=== PATIENT | male | born 1955 | race Caucasian/White ===

== ENCOUNTER 2017-10-10 08:01 | Day surgery (SDC) | payer BC ==
[2017-10-10 08:42] VITALS: TEMP 98.4; BMI 37.5
--- NOTE | 2017-10-10 09:21 | PROC ---
Endoscopy Procedure Endoscopy procedure completed. Please see scanned procedure report.
[2017-10-10 09:52] VITALS: PULSE 70
[2017-10-10 10:43] VITALS: BP 148/55
--- NOTE | 2017-10-11 14:07 | PATH ---
Surgical Pathology Report Patient Name: KYRA SANDOVAL [facility]. Rec. #: [id number] /Age/Gender: 1955 (Age: 61) / M Account: [id number] Location: [facility]-ENDOSCOPY Taken: 10/10/2017 Received: 10/10/2017 Reported: 10/11/2017 Physicians: Aren Hyde M.D. Specimen(s) Received A: BX TRANSVERSE COLON POLYP B: BX RECTAL POLYP #1 C: BX RECTAL POLYP #2 Clinical History History of colon polyp Postoperative diagnosis: Polyps Final Diagnosis A. TRANSVERSE COLON, POLYP, POLYPECTOMY: TUBULAR ADENOMA. B. RECTAL POLYP #1, POLYPECTOMY: HYPERPLASTIC POLYP. C. RECTAL POLYP #2, POLYPECTOMY: HYPERPLASTIC POLYP. Electronically Signed Lucy Coley M.D. Gross Description A. Received in formalin, labeled "biopsy transverse colon polyp" is a gallagher, irregular portion of soft tissue measuring 0.2 cm. in greatest dimension. The specimen is submitted in toto in one cassette. B. Received in formalin, labeled "biopsy rectal polyp #1" are 2 gallagher, irregular portions of soft tissue averaging 0.3 cm. in greatest dimension. The specimens are submitted in toto in one cassette. C. Received in formalin, labeled "biopsy rectal polyp #2" is a gallagher, irregular portion of soft tissue measuring 0.5 cm. in greatest dimension. The specimen is submitted in toto in one cassette. DL/10/10/2017 saudi10/10/2017
== END 2017-10-10 10:43 | disposition home or self-care (01) ==
LOC: JASU-ENDO 08:01
PROVIDERS: ATTEND Internal Medicine Gastroenterology
PROC: 0DBL8ZX Excision of Transverse Colon, Via Natural or Artificial Opening Endoscopic, Diagnostic (ICD-10-PCS; 2017-10-10)
PROC: 0DBP8ZX Excision of Rectum, Via Natural or Artificial Opening Endoscopic, Diagnostic (ICD-10-PCS; principal; 2017-10-10 09:15)
DX: Z12.11 Encounter for screening for malignant neoplasm of colon (principal); Z86.010 Personal history of colon polyps; K62.1 Rectal polyp; K63.5 Polyp of colon; D12.3 Benign neoplasm of transverse colon
CPT/HCPCS: 88305-TC